=== PATIENT | female | born 1935 | race Caucasian/White ===

== ENCOUNTER → 2016-08-11 | Outpatient (CLI) | payer MEDICARE, BC ==
--- NOTE | 2016-08-11 15:15 | P.PN ---
Progress Note - Text Patient returns for followup for chronic back pain with radiation to legs, s/p multiple back surgeries. Patient recently underwent bilateral shoulder surgery , which has helped with her shoulder pain but she is still having persistent low back and leg pain. Patient continues on Pall Mall medications for pain with good relief. Patient denies adverse drug effects from medications. Today, pt denies new-onset weakness, bowel/bladder incontinence, or any other signs or symptoms of cauda equina syndrome. There are no signs of acute intoxication, and no indications of medication diversion or overuse. In addition to above, 13-point review of systems is also negative for chest pain , shortness of breath, changes in vision, changes in hearing, new onset weakness , abdominal pain, diarrhea, extreme fatigue, malaise, fever, skin changes, homicidal or suicidal ideation, or bowel or bladder incontinence. Vital Signs: Reviewed in EMR Gen: WDWN, AAOx3, NAD HEENT: NCAT, EOMI, hearing grossly normal Pulm: resp unlabored Abd: soft, NT, ND Thoracic spine: + thoracic facet tenderness, + thoracic paravertebral tenderness ROM in flexion lumbar spine: reduced ROM in extension lumbar spine: reduced Lumbar paravertebral tenderness: + bilateral Facet loading: + bilateral SI joint tenderness: + bilateral, L > R Hilario's test: + bilateral, L > R Straight leg raise: + LLE Left hip: TTP over left trochanteric bursa Neuro: CN II-XII grossly intact, muscle strength lower extremities decreased LLE 4/5 Imaging: Reviewed in EMR, result from August 2013 Assessment: 1. lumbar PLPS 2. lumbar spondylosis without myelopathy 3. thoracic spondylosis 4. chronic pain syndrome 5. shoulder OA 6. trochanteric bursitis Plan: 1. Explanation: Opioid and psychological risk scores were reviewed. Diagnoses , prognoses, and multiple treatment options including but not limited to physical therapy, interventional therapies, adjuvant medical therapies, narcotic medication therapies, and surgery were discussed with the patient and all questions were answered to the patient's satisfaction. 2. Opioid agreement: Patient has previously signed narcotic agreement, and was orally counseled to not overuse, abuse, divert, or cell medications, and to take them as prescribed by only 1 healthcare provider. The patient was also counseled to store opioid medications in a safe and preferably locked location. Patient was also counseled against driving or operating heavy equipment while using narcotic medications and also to not use alcohol or any illicit or recreational drugs. The patient verbalized understanding that lack of compliance with any of the above and likely result in failure to renew narcotic prescriptions, possible discharge from the clinic, and possible legal ramifications thereafter if indicated. 3. Counseling: The patient was counseled extensively on BODY MASS INDEX, EXERCISE. Specifically, the patient was instructed regarding the importance of smoking cessation, obesity, and exercise in the context of both chronic pain and overall health. 4. Procedures: 5. Consultations: None 6. Investigations: CT scan cervical and thoracic spines, UDS today 7. Medications: Because the patient is getting opioids from another pain physician in [place], it is inappropriate for us to continue prescribing opioids at our clinic as this necessitates an opioid agreement. That said, she is on a dose of Pall Mall (10/325 TID) and Lyrica (75-100 mg BID) and these doses are safe for her even despite her advanced age. I advised the patient to request her primary care physician Dr. Albarado to continue prescribing these medications for her, as we will not be able to if she continues to go to [place] regularly and receive medications from another pain physician. 8. Disposition: f/u for re-eval 2-[address] result. Patient requested to get records from lightning protection installer who may do shoulder and hip bursa injections on her later this week. PQRS measures: 1-Patient's medications are documented in the chart. 2-Tobacco use is negative 3-Patient has not had a pneumococcal vaccine. 4-Advanced care planning discussed, patient unable to give. 5-Opioid contract NOT signed with the patient. 6-Pain positive, follow-up visit or procedure scheduled 7-Patient's blood pressure measured and documented, and WNL. 8-Patient's weight was measured, and body mass index ABOVE the normal limits, and counseling was done. Patient instructed to follow up with PCP. 9-Patient WAS NOT identified as an unhealthy alcohol user.
== END | disposition home or self-care (01) ==
LOC: PNWHC3 14:02
PROVIDERS: ATTEND Anesthesiology
DX: M47.816 Spondylosis without myelopathy or radiculopathy, lumbar region (principal); M47.814 Spondylosis without myelopathy or radiculopathy, thoracic region; G89.4 Chronic pain syndrome; M19.019 Primary osteoarthritis, unspecified shoulder; M70.60 Trochanteric bursitis, unspecified hip
CPT/HCPCS: G0480; G0463; 80307; 80346; 80356; 80364; 99211

== ENCOUNTER → 2016-08-11 | Outpatient (CLI) | payer MEDICARE, BC ==
--- NOTE | 2016-08-11 18:18 | CT ---
EXAMINATION TYPE: CT CervThoracic spine wo con DATE OF EXAM: 08/11/2016 HISTORY: Patient complains of mid back pain that radiates superiorly into the neck. CT DLP: 2756 mGycm. Automated exposure control for dose reduction was used. FINDINGS: Cervical spine: There are multilevel moderate and moderate marked cervical spondylosis changes. C1-2 and C2-3: Mild right-sided neural foraminal bony stenosis. C3-4: Bilateral moderate-marked bony stenosis of the neural foramen. C4-5 and C5-6: Spondylosis changes without canal stenosis or neural foraminal stenosis. C6-7: Posterior osteophytic ridging off the endplates at the midline produces a midline epidural defe ct with narrowing of the spinal canal at this level to 7 mm AP. C7-T1 and T1-2: Mild spondylosis changes without stenosis. Thoracic spine: There is no malalignment and no fracture. At the thoracolumbar junction are several p edicle fixation screws seen on the gauge and instrument inspector topogram. The 4 uppermost of these bilateral pedicle fixatio n screws were imaged in cross-section and are seen to be intact, and without periprosthesis lucencies . There are multilevel relatively mild degenerative disc and facet changes. There are no compression deformities, and the heights of the vertebral bodies are intact at all levels. There are no focal ske letal lesions and no paraspinal soft tissue abnormalities. IMPRESSION: 1. NO ACUTE PROCESS. 2. CERVICAL SPONDYLOSIS CHANGES MOST ADVANCED AT C6-7 AND THEN C3-4. 3. THORACIC SPINE EVALUATION UNREMARKABLE.
== END | disposition home or self-care (01) ==
LOC: RADCTMAIN 15:48
PROVIDERS: ATTEND Anesthesiology
DX: M47.812 Spondylosis without myelopathy or radiculopathy, cervical region (principal); M47.814 Spondylosis without myelopathy or radiculopathy, thoracic region
CPT/HCPCS: 72125; 72128

== ENCOUNTER → 2016-08-24 | Outpatient (CLI) | payer MEDICARE, BC ==
[2016-08-24 11:38] VITALS: BP 135/81; PULSE 76; RESP 20; TEMP 98.3
--- NOTE | 2016-08-24 12:06 | P.PN ---
Progress Note - Text Patient returns for followup for chronic back pain with radiation to legs, s/p multiple back surgeries. Patient had CT of C-spine and T-spine completed, results below. Patient continues on [place] medications for pain from PCP with good relief. Patient denies adverse drug effects from medications. Today, pt denies new-onset weakness, bowel/bladder incontinence, or any other signs or symptoms of cauda equina syndrome. There are no signs of acute intoxication, and no indications of medication diversion or overuse. In addition to above, 13-point review of systems is also negative for chest pain , shortness of breath, changes in vision, changes in hearing, new onset weakness , abdominal pain, diarrhea, extreme fatigue, malaise, fever, skin changes, homicidal or suicidal ideation, or bowel or bladder incontinence. Vital Signs: Reviewed in EMR Gen: WDWN, AAOx3, NAD HEENT: NCAT, EOMI, hearing grossly normal Pulm: resp unlabored Abd: soft, NT, ND Thoracic spine: + thoracic facet tenderness, + thoracic paravertebral tenderness ROM in flexion lumbar spine: reduced ROM in extension lumbar spine: reduced Lumbar paravertebral tenderness: + bilateral Facet loading: + bilateral SI joint tenderness: + bilateral, L > R Hilario's test: + bilateral, L > R Straight leg raise: neg Left hip: TTP over left trochanteric bursa > R trochanteric bursa Neuro: CN II-XII grossly intact, muscle strength lower extremities decreased LLE 4/5 Imaging: Computed tomography scan thoracic spine demonstrates bilateral moderate to marked bony stenosis of the neural foramen at C3-C4, spondylotic changes without cooks canal stenosis or neural foraminal stenosis at C4-C5 and C5-C6, and posterior osteophytic ridging of the endplates resulting in the midline epidural defect with narrowing of the spinal canal at the C6-C7 level. At the C7-T1 and T1-T2 levels there is mild spondylosis without stenosis. CT of the thoracic spine demonstrates several pedicle fixation screws there are imaging cross-section seem to be intact. There are multilevel mild degenerative disc and facet changes but no compression deformities no disc protrusions and no focal skeletal lesions. Assessment: 1. thoracic PLPS 2. lumbar spondylosis without myelopathy 3. cervical spondylosis 4. chronic pain syndrome 5. shoulder OA 6. trochanteric bursitis Plan: 1. Explanation: Opioid and psychological risk scores were reviewed. Diagnoses , prognoses, and multiple treatment options including but not limited to physical therapy, interventional therapies, adjuvant medical therapies, narcotic medication therapies, and surgery were discussed with the patient and all questions were answered to the patient's satisfaction. 2. Opioid agreement: no opioids prescribed today 3. Counseling: The patient was counseled extensively on BODY MASS INDEX, EXERCISE. Specifically, the patient was instructed regarding the importance of smoking cessation, obesity, and exercise in the context of both chronic pain and overall health. 4. Procedures: bilateral cervical MBB 5. Consultations: None 6. Investigations: CT lumbar spine, UDS today 7. Medications: none prescribed 8. Disposition: f/u for procedure as scheduled PQRS measures: 1-Patient's medications are documented in the chart. 2-Tobacco use is negative 3-Patient has not had a pneumococcal vaccine. 4-Advanced care planning discussed, patient unable to give. 5-Opioid contract NOT signed with the patient. 6-Pain positive, follow-up visit or procedure scheduled 7-Patient's blood pressure measured and documented, and WNL. 8-Patient's weight was measured, and body mass index ABOVE the normal limits, and counseling was done. Patient instructed to follow up with PCP. 9-Patient WAS NOT identified as an unhealthy alcohol user.
--- NOTE | 2016-08-24 14:29 | CT ---
EXAMINATION TYPE: CT lumbar spine wo con DATE OF EXAM: 08/24/2016 COMPARISON: NONE HISTORY: 81-year-old female with chronic back pain TECHNIQUE: Contiguous axial scanning of the lumbar spine without IV contrast. Coronal and sagittal re constructions performed. CT DLP: 2759 mGycm Automated exposure control for dose reduction was used. 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 The exam is degraded by extensive artifacts from the patient's orthopedic hardware and patient's larg e body habitus. No david malalignment. There is posterior fusion of the thoracolumbar spine extending from T10 down through L3 levels. There appears to be considerable lateral osseous fusion and laminectomy changes from T12 down to L5 Extending along the laminectomy bed opposite L3-L5, there is a 3.1 cm wide by 6.9 cm craniocaudal by 3.2 cm AP fluid collection. Bridging anterior spurring at the sacroiliac joints prior pedicular screw tracts within the L5 level. Suboptimal assessment of bony detail. No obvious paravertebral phlegmon is identified. At L5-S1, there appears to be mild to moderate bilateral neuroforaminal stenosis. At L4-L5, bony hyperostotic changes and facet arthropathy appear to cause moderate to severe bilatera l neuroforaminal stenoses. At L3-L4, there is no david foraminal compromise. At L2-L3, changes result in at least moderate left and mild right neuroforaminal stenosis. At L1-L2, changes may result in severe bilateral neuroforaminal stenoses. At T12-L1, bony changes may result in moderate to severe bilateral neuroforaminal stenoses. At T11-T12, changes may result in at least moderate bilateral neuroforaminal stenoses. At T10-T11, changes may result in severe bilateral neural foraminal stenoses. Disc osteophyte comple x and bony hyperostotic changes cause at least mild spinal canal stenosis here. IMPRESSION: 1. SUBOPTIMAL ASSESSMENT OF THE OSSEOUS STRUCTURES THERE ARE SEVERE METAL HARDWARE ARTIFACTS AND A DDITIONAL ARTIFACTS FROM LARGE BODY HABITUS. NO OBVIOUS PARAVERTEBRAL PHLEGMON. 2. T10-L3 POSTERIOR FUSION WITH LAMINECTOMIES FROM T12 THROUGH L5. 3. A 6.9 X 3.2 CM FLUID COLLECTION INTERPOSED AT THE LAMINECTOMY BED EXTENDING FROM L3 THROUGH L5. CL INICAL CORRELATION RECOMMENDED TO ETIOLOGY. BOTH ABSCESS AND CHRONIC POSTOPERATIVE SEROMA/HEMATOMA ARE POSSIBILITIES. 4. AT LEAST MILD SPINAL CANAL STENOSIS AT T10-T11. 5. VARIABLE MODERATE TO SEVERE NEUROFORAMINAL STENOSES OUTLINED ABOVE.
== END | disposition home or self-care (01) ==
LOC: PNWHC3 10:45
PROVIDERS: ATTEND Anesthesiology
DX: M47.816 Spondylosis without myelopathy or radiculopathy, lumbar region (principal); M48.04 Spinal stenosis, thoracic region; M99.73 Connective tissue and disc stenosis of intervertebral foramina of lumbar region; M47.812 Spondylosis without myelopathy or radiculopathy, cervical region; M19.019 Primary osteoarthritis, unspecified shoulder; M70.60 Trochanteric bursitis, unspecified hip; G89.4 Chronic pain syndrome; Z98.1 Arthrodesis status
CPT/HCPCS: 72131; G0463; 99211

== ENCOUNTER 2016-09-02 07:41 | Day surgery (SDC) | payer MEDICARE, BC ==
[2016-08-31 10:30] VITALS: BMI 41.3
[2016-09-02 08:47] VITALS: RESP 20; TEMP 96.4
[2016-09-02] MEDS: LACTATED RINGERS 1,000 ML IV SCH ×2 (08:49→08:54)
[2016-09-02] MEDS ORDERED: DEXAMETHASONE SOD PHOS (MDV) 100 MG/10 ML VIAL ONE (08:58)
[2016-09-02] MEDS ORDERED: BUPIVACAINE (PF) 0.5% 30 ML VIAL ONE (08:58)
--- NOTE | 2016-09-02 09:40 | FL ---
EXAMINATION TYPE: FL guided pain mgmt statistic DATE OF EXAM: 09/02/2016 HISTORY: Flouroscopy time 34 seconds of fluoroscopy provided. IMPRESSION: 1. Fluoroscopy time.
[2016-09-02 09:56] VITALS: BP 156/70; PULSE 75
[2016-09-02] MEDS ORDERED: IV FLUID CONTINUATION 1,000 ML IV ONE (09:57)
--- NOTE | 2016-09-02 10:20 | P.PCN ---
Date of Procedure: 09/02/16 Preoperative Diagnosis: Postoperative Diagnosis: Procedure(s) Performed: Implants: Surgeon: Boom Fitzgerald Pathology: none sent Condition: stable Disposition: PACU Indications for Procedure: Operative Findings: Description of Procedure: PREOPERATIVE DIAGNOSIS: Cervical spondylosis without myelopathy, cervicogenic headache. POSTOPERATIVE DIAGNOSIS: same PROCEDURES: Diagnostic bilateral C3, C4, C5 medial branch block, with fluoroscopic guidance ANESTHESIA: Local with 1% lidocaine; conscious sedation EBL: Minimal PROCEDURE INDICATION: This is a patient with neck pain and headaches secondary to cervical arthropathy unresponsive to more conservative treatments. Patient has been off Eliquis for one week. MBB#1 today. PROCEDURE DESCRIPTION / TECHNIQUE: The patient was seen and identified in the preoperative area. Risks, benefits, complications, and alternatives were discussed with the patient (including but not limited to incomplete pain relief , bleeding, infection, nerve damage, and allergies to medications), the patient agreed to proceed with the procedure and signed the consent after all questions were answered. IV was started. Vital signs remained stable throughout the procedure. Patient was taken to the OR and time out was completed. The patient was placed in the prone position on the procedure table. A pillow was placed under the patients chest to increase the cervical interlaminar space. The cervical area was prepped and draped in the usual sterile fashion. Critical pause was taken. Vital signs were closely monitored during the procedure. Conscious sedation was used during the procedure to decrease patients anxiety. Using cross-table lateral fluoroscopy, the centroid of the trapezoid of right C3 , was identified, marked, and localized with 1% lidocaine. Subsequently, a 22- gauge 3.5-inch spinal needle was advanced guided by fluoroscopy to the centroid of the trapezoid of C3. Needle tip position was confirmed at the centroid of the trapezoids of C3 with anteroposterior fluoroscopy. Subsequently, 1 ml of a combination of 10 mg Decadron and 6 ml of preservative-free Bupivacaine 0.5% was injected after negative aspiration for blood and CSF. Needle was then removed intact; the same procedure was repeated at the right C4 and C5 levels. This process was then repeated on the left side as above. All aspirations were negative for heme or CSF. All needles were removed intact. At the end of the procedure, skin was cleansed and bandages were applied. COMPLICATIONS: No acute complications. COMMENTS: DISPOSITION / PLANS: The patient was placed in a supine position and transferred to the recovery area in a stable condition for observation and was discharged from the recovery room after meeting discharge criteria. Home discharge instructions given to the patient by the staff. The patient was reexamined prior to discharge. The patient will schedule a follow up in the clinic to discuss her other medical issues and to assess relief from this procedure.
== END 2016-09-02 10:07 | disposition home or self-care (01) ==
LOC: ORPAIN 07:41
PROVIDERS: ATTEND Anesthesiology
DX: M47.812 Spondylosis without myelopathy or radiculopathy, cervical region (principal); G44.89 Other headache syndrome; M48.02 Spinal stenosis, cervical region; M25.78 Osteophyte, vertebrae; M47.893 Other spondylosis, cervicothoracic region; G89.4 Chronic pain syndrome; M47.816 Spondylosis without myelopathy or radiculopathy, lumbar region; G54.6 Phantom limb syndrome with pain; M19.019 Primary osteoarthritis, unspecified shoulder; M70.60 Trochanteric bursitis, unspecified hip; Z79.891 Long term (current) use of opiate analgesic
CPT/HCPCS: 64490; 64491; 64492; J1100